=== PATIENT | male | born 1990 | race Asian ===

== ENCOUNTER 2022-04-17 12:09 | Emergency (ER) | payer OTHER ==
[2022-04-17] MEDS ORDERED: LOSARTAN POTASSIUM 50 MG TABLET ONE (12:35)
[2022-04-17] MEDS ORDERED: HYDRALAZINE HCL 20 MG/ML VIAL ONE (12:36)
[2022-04-17 12:47] LABS: Absolute Lymphocytes (CBC) 2.1 K/uL (0.7-4.9); Lymphocytes % 27.6 % (15.3-44.8); MCV 87.7 fL (80-100); MPV 6.7 fL (7.6-11.3)
[2022-04-17 13:05] LABS: Potassium 3.4 mmol/L (3.5-5.1); Troponin High Sensitivity 7.8 pg/mL (<58.9)
--- NOTE | 2022-04-17 13:28 | RAD REPORT ---
EXAM DESCRIPTION: RAD - Chest Single View - 04/17/2022 1:20 pm CLINICAL HISTORY: hypertension Chest pain. COMPARISON: No comparisons FINDINGS: Portable technique limits examination quality. The lungs are grossly clear. The heart is normal in size. No displaced fractures. IMPRESSION: No acute intrathoracic process suspected.
--- NOTE | 2022-04-17 14:58 | EDPHYS ---
Physician Documentation [facility] [place] Name: Key Padilla Age: 32 yrs Sex: Male : 1990 Arrival Date: 04/17/2022 Time: 12:19 Bed 23 Private MD: ED Physician Rufus Pitts Historical: - Allergies: 04/17 12:26 No Known Allergies; ld1 - Home Meds: 12:26 losartan-hydrochlorothiazide 100-25 mg oral tab 1 tab once daily [Active]; ld1 - PMHx: 12:26 Hypertensive disorder; ld1 - PSHx: 12:26 None; ld1 - Immunization history:: Adult Immunizations up to date, Client reports receiving the 2nd dose of the Covid vaccine. - Social history:: Smoking status: Patient denies any tobacco usage or history of. Patient/guardian denies using alcohol. Exam: 12:39 ECG was reviewed by the Attending Physician. kdr Vital Signs: 12:24 BP 209 / 137; Pulse 101; Resp 20; Temp 98.6(O); Pulse Ox 100% on R/A; Weight 97.52 kg; ld1 Height 5 ft. 8 in. (172.72 cm); Pain 0/10; 12:57 BP 179 / 112; Pulse 96; Resp 18; Pulse Ox 99% on R/A; ld1 13:53 BP 181 / 105; Pulse 94; Resp 18; Pulse Ox 100% on R/A; ld1 14:26 BP 147 / 96; Pulse 95; Resp 18; Pulse Ox 99% on R/A; ld1 12:24 Body Mass Index 32.69 (97.52 kg, 172.72 cm) ld1 MDM: 12:39 Data reviewed: vital signs, lab test result(s), radiologic studies. Counseling: I had a kdr detailed discussion with the patient and/or guardian regarding: the historical points, exam findings, and any diagnostic results supporting the discharge/admit diagnosis, lab results, radiology results. 14:57 Patient medically screened. kdr 04/17 12:23 Order name: Basic Metabolic Panel kdr 04/17 12:23 Order name: CBC with Diff kdr 04/17 12:23 Order name: NT PRO-BNP kdr 04/17 12:23 Order name: Troponin HS kdr 04/17 12:23 Order name: XRAY Chest (1 view) kdr 04/17 12:23 Order name: EKG; Complete Time: 12:24 kdr 04/17 12:23 Order name: Cardiac monitoring; Complete Time: 12: kdr 04/17 12:23 Order name: EKG - Nurse/Tech; Complete Time: 12:27 kdr 04/17 12:23 Order name: IV Saline Lock; Complete Time: 12:27 kdr 04/17 12:23 Order name: Labs collected and sent; Complete Time: 12:32 kdr 04/17 12:23 Order name: O2 Per Protocol; Complete Time: 12: kdr 04/17 12:23 Order name: O2 Sat Monitoring; Complete Time: 12: kdr EC:39 Rate is 101 beats/min. Rhythm is regular, Sinus Rhythm with No ectopy. QRS [place] is kdr Normal. NE interval is normal. QRS interval is normal. QT interval is normal. Clinical impression: NSR w/ Non-specific ST/T Changes. Administered Medications: 12:32 Drug: Losartan 50 mg Route: PO; ld1 12:32 Drug: hydrALAZINE 10 mg Route: IVP; Site: right antecubital; ld1 Disposition Summary: 04/17/22 14:57 Discharge Ordered Location: Home kdr Problem: an acute exacerbation kdr Symptoms: have improved kdr Condition: Stable kdr Diagnosis - Hypertensive heart disease without heart failure kdr Followup: kdr - With: Private Physician - When: 2 - 3 days - Reason: If symptoms return, Further diagnostic work-up, Recheck today's complaints, Continuance of care, Re-evaluation by your physician Discharge Instructions: - Discharge Summary Sheet kdr - Hypertension, Adult kdr - Hypertension, Adult, [id number] kdr Forms: - Medication Reconciliation Form kdr - Thank You Letter kdr Prescriptions: - losartan 50 mg Oral tablet - take 1 tablet by ORAL route 2 times per day; 40 tablet; Refills: 0, Product kdr Selection Permitted Signatures: Dispatcher [employer] Rufus Gomes MD MD kdr Tierney Hawthorne RN RN ld1
--- NOTE | 2022-04-17 14:58 | ER ---
Nurse's Notes [facility] [place] Name: Key Padilla Age: 32 yrs Sex: Male : 1990 Arrival Date: 04/17/2022 Time: 12:19 Bed 23 Private MD: Diagnosis: Hypertensive heart disease without heart failure Presentation: 04/17 12:24 Chief complaint: Patient states: Went to the [place] clinic for my annual check up - I also ld1 have been out of my HTN medications. [place] clinic sent pt to ER due to BP 220/165. Coronavirus screen: At this time, the client does not indicate any symptoms associated with coronavirus-19. Ebola Screen: No symptoms or risks identified at this time. Initial Sepsis Screen: Does the patient meet any 2 criteria? No. Patient's initial sepsis screen is negative. Does the patient have a suspected source of infection? No. Patient's initial sepsis screen is negative. Risk Assessment: Do you want to hurt yourself or someone else? Patient reports no desire to harm self or others. Onset of symptoms was April 17, 2022. 12:24 Method Of Arrival: EMS: [facility] ld1 12:24 Acuity: JATINDER 2 ld1 Triage Assessment: 12:26 General: Appears in no apparent distress. comfortable, Behavior is calm, cooperative, ld1 appropriate for age. Pain: Denies pain. EENT: No signs and/or symptoms were reported regarding the EENT system. Neuro: Level of Consciousness is awake, alert, obeys commands, Oriented to person, place, time, situation, Reports headache. Cardiovascular: Capillary refill < 3 seconds Patient's skin is warm and dry. Rhythm is sinus tachycardia. Respiratory: Airway is patent Respiratory effort is even, unlabored, Respiratory pattern is regular, symmetrical. GI: Abdomen is round non-distended. : No signs and/or symptoms were reported regarding the genitourinary system. Derm: No signs and/or symptoms reported regarding the dermatologic system. Musculoskeletal: No signs and/or symptoms reported regarding the musculoskeletal system. Historical: - Allergies: 12: No Known Allergies; ld1 - Home Meds: 12: losartan-hydrochlorothiazide 100-25 mg oral tab 1 tab once daily [Active]; ld1 - PMHx: 12: Hypertensive disorder; ld1 - PSHx: 12:26 None; ld1 - Immunization history:: Adult Immunizations up to date, Client reports receiving the 2nd dose of the Covid vaccine. - Social history:: Smoking status: Patient denies any tobacco usage or history of. Patient/guardian denies using alcohol. Screenin:26 Abuse screen: Denies threats or abuse. Denies injuries from another. Nutritional ld1 screening: No deficits noted. Tuberculosis screening: No symptoms or risk factors identified. Fall Risk None identified. Assessment: 12:26 Reassessment: See triage assessment. ld1 Vital Signs: 12:24 BP 209 / 137; Pulse 101; Resp 20; Temp 98.6(O); Pulse Ox 100% on R/A; Weight 97.52 kg; ld1 Height 5 ft. 8 in. (172.72 cm); Pain 0/10; 12:57 BP 179 / 112; Pulse 96; Resp 18; Pulse Ox 99% on R/A; ld1 13:53 BP 181 / 105; Pulse 94; Resp 18; Pulse Ox 100% on R/A; ld1 14:26 BP 147 / 96; Pulse 95; Resp 18; Pulse Ox 99% on R/A; ld1 12:24 Body Mass Index 32.69 (97.52 kg, 172.72 cm) ld1 ED Course: 12:19 Patient arrived in ED. ss 12:20 Rufus Pitts MD is Attending Physician. kdr 12:24 Tierney Hawthorne, YARITZA is Primary Nurse. ld1 12:25 Triage completed. ld1 12:26 Arm band placed on right wrist. EKG completed in triage. Results shown to MD. ld1 12:26 Patient has correct armband on for positive identification. Placed in gown. Bed in low ld1 position. Call light in reach. Side rails up X2. Client placed on continuous cardiac and pulse oximetry monitoring. NIBP monitoring applied. ekg monitor on. Door closed. Noise minimized. 12:26 No provider procedures requiring assistance completed. Inserted saline lock: 20 gauge ld1 in right antecubital area, using aseptic technique. Blood collected. 13:22 XRAY Chest (1 view) In Process Unspecified. EDMS 15:06 IV discontinued, intact, bleeding controlled, No redness/swelling at site. ld1 Administered Medications: 12:32 Drug: Losartan 50 mg Route: PO; ld1 12:32 Drug: hydrALAZINE 10 mg Route: IVP; Site: right antecubital; ld1 Medication: 12:26 VIS not applicable for this client. ld1 Outcome: 14:57 Discharge ordered by . kdr 15:06 Discharged to home ambulatory. ld1 15:06 Condition: stable 15:06 Discharge instructions given to patient, Instructed on discharge instructions, follow up and referral plans. medication usage, Demonstrated understanding of instructions, follow-up care, medications, Prescriptions given X 1. 15:06 Patient left the ED. ld1 Signatures: Dispatcher [employer] EDMS Rufus Pitts MD MD kdr Lissy Murphy RN RN Tierney Hawthorne RN RN ld1 Corrections: (The following items were deleted from the chart) 12:25 12:24 BP 109 / 137; Pulse 101bpm; Resp 20bpm; Pulse Ox 100% RA; Temp 98.6F Oral; 97.52 ld1 kg; Height 5 ft. 8 in.; BMI: 32.6; Pain 0/10; ld1
--- NOTE | 2022-04-18 13:54 | EKG ---
Test Date: 2022-04-17 Test Time: 12:14:24 Assistant Professor In Family Studies: PATRIZIA MEASUREMENT RESULTS: Intervals: Rate: 101 WA: 182 QRSD: 78 QT: 358 QTc: 464 [place]: P: 35 WA: 182 QRS: 56 T: -29 INTERPRETIVE STATEMENTS: Sinus tachycardia Possible Left atrial enlargement T wave abnormality, consider inferior ischemia Abnormal ECG No previous ECG available for comparison Electronically Signed On 04-18-22 13:51:18 CDT by Severo Boss
== END 2022-04-17 15:06 | disposition home or self-care (01) ==
LOC: ER 12:09
DX: I11.9 Hypertensive heart disease without heart failure (principal); I10 Essential (primary) hypertension
CPT/HCPCS: 93005; 85025; 80048; 36415; 84484; 83880; 71045; J0360